=== PATIENT | female | born 1955 | race Caucasian/White ===

== ENCOUNTER 2021-04-02 07:30 | Day surgery (SDC) | payer MEDICARE, OTHER ==
[~2021-04-02 07:30] MED LIST: Lactated Ringers 1,000 ML IV PRN; Sodium Chloride 0.9% 10 ML Syringe FLUSH PRN
[2021-04-02] MEDS ORDERED: fentaNYL 100 MCG/2 ML SDV IV ONE (07:31)
[2021-04-02] MEDS ORDERED: Midazolam 1 MG/ML 2 ML SDV IV ONE (07:31)
[2021-04-02] MEDS ORDERED: Ondansetron 4 MG/2 ML SDV IVPUSH ONE (07:31)
[2021-04-02] MEDS ORDERED: acetaZOLAMIDE 500 MG Cap.ER PO ONE (09:30)
[2021-04-02 11:03] VITALS: BP 123/73; PULSE 66
--- NOTE | 2021-04-03 09:03 | OR ---
DATE OF OPERATION: 04/02/2021 SURGEON: Lina Hammond MD PREOPERATIVE DIAGNOSIS: Visually significant cataract, left eye. POSTOPERATIVE DIAGNOSIS: Visually significant cataract, left eye. PROCEDURES PERFORMED: Phacoemulsification with intraocular lens placement, left eye. ASSISTANTS: None. ANESTHESIA: Local with sedation. COMPLICATIONS: None. BLOOD LOSS: None. IMPLANTS: Preloaded MALGORZATA DCB00 20.5 diopter lens implanted. CDE: 4.33. DESCRIPTION OF PROCEDURE: After risks and benefits were reviewed with the patient, consent was obtained in the preoperative area, and the operative eye was marked with a surgical pen. In the preoperative area, a pledget was used to dilate the pupil consisting of a mixture of phenylephrine 10%, cyclopentolate 2%, moxifloxacin 0.5%, and bupivacaine 0.75%. The patient was taken to the operating room, where a time-out was performed, and the patient was placed under monitored anesthesia care. Topical tetracaine was used for anesthesia. The operative eye was prepped and draped for ophthalmic surgery, and the microscope was brought into position and focused. A paracentesis incision was made, followed by injection of preservative-free 1% lidocaine into the anterior chamber, followed by injection of Viscoat into the anterior chamber. A microkeratome blade was used to make a corneal limbal incision temporally. A cystotome was used to make the beginning of the capsulorrhexis, which was carried around 360 degrees in a curvilinear fashion using Utrata forceps. A Patrick cannula with BSS was used to hydrodissect and hydrodelineate the nucleus. The nucleus was removed in a divide and conquer manner using phacoemulsification. Irrigation and aspiration were used to remove the remaining cortical material. Provisc was used to inflate the capsular bag, and a pre-loaded MALGORZATA DCB00 20.5 diopter lens, serial number [id number] was injected into the capsular bag. A Sinskey hook was used to position and center the lens. Next, irrigation and aspiration was used to remove any remaining viscoelastic and cortical material from the anterior chamber. BSS on a cannula was used to inflate the anterior chamber and hydrate the wound. The wound was checked and found to be watertight. 1 mg of Moxifloxacin was injected into the anterior chamber. Drapes were removed and the eye was cleaned. A drop of brimonidine 0.2% and a drop of TobraDex was placed. The eye was shielded, and the patient was taken to the recovery room in stable condition. /[id number] STEFANI/AMAURY
== END 2021-04-02 10:30 | disposition home or self-care (01) ==
LOC: FB.SDS 07:30
PROVIDERS: ATTEND Ophthalmology
DX: H25.813 Combined forms of age-related cataract, bilateral (principal); H35.372 Puckering of macula, left eye; H02.881 Meibomian gland dysfunction right upper eyelid; H02.884 Meibomian gland dysfunction left upper eyelid; H31.2 Hereditary choroidal dystrophy; H52.13 Myopia, bilateral; I10 Essential (primary) hypertension; E66.9 Obesity, unspecified; K21.9 Gastro-esophageal reflux disease without esophagitis; E78.5 Hyperlipidemia, unspecified; Z79.899 Other long term (current) drug therapy; Z79.82 Long term (current) use of aspirin; Z88.1 Allergy status to other antibiotic agents; Z88.0 Allergy status to penicillin; Z91.013 Allergy to seafood; Z68.37 Body mass index [BMI] 37.0-37.9, adult; Z91.041 Radiographic dye allergy status
CPT/HCPCS: 00142-QZ; A9270-GY; J2250; J2405; J3010; J7120; V2632

== ENCOUNTER 2022-11-28 06:41 | Day surgery (SDC) | payer MEDICARE ==
[~2022-11-28 06:41] MED LIST changes: -Lactated Ringers 1,000 ML IV PRN; +Lactated Ringers 1,000 ML IV SCH; +ceFAZolin 2 GM Vial IVPUSH ONE; +ceFAZolin 2 GM in Sodium Chloride 0.9% 100 ML IV ONE
[2022-11-28] MEDS ORDERED: Scopolamine 1.5 MG Transdermal Patch TOP ONE (06:42)
[2022-11-28] MEDS ORDERED: Sugammadex Sodium 200 MG/2 ML VIAL IV ONE (06:42)
[2022-11-28] MEDS ORDERED: Propofol 200 MG/20 ML SDV IV ONE (06:42)
[2022-11-28] MEDS ORDERED: Lactated Ringers 1,000 ML IV ONE (06:42)
[2022-11-28] MEDS ORDERED: Ondansetron 4 MG/2 ML SDV IVPUSH ONE (06:42)
[2022-11-28] MEDS ORDERED: Glycopyrrolate 0.2 MG/ML 5 ML MDV IV ONE (06:42)
[2022-11-28] MEDS ORDERED: fentaNYL 100 MCG/2 ML SDV IV ONE (06:42)
[2022-11-28] MEDS ORDERED: Rocuronium 100 MG/10 ML MDV IV ONE (06:42)
[2022-11-28] MEDS ORDERED: Midazolam 1 MG/ML 2 ML SDV IV ONE (06:42)
[2022-11-28] MEDS ORDERED: Bupivacaine 0.5%/EPINEPHrine 1:200,000 10 ML SDV INJECT ONE ×2 (08:37)
[2022-11-28 10:03] VITALS: BP 120/69; PULSE 78
[2022-11-28] MEDS ORDERED: Acetaminophen/HYDROcodone 325-5 MG Tab PO ONE (10:38)
== END 2022-11-28 11:55 | disposition home or self-care (01) ==
LOC: FB.SDS 06:41
PROVIDERS: ATTEND Surgery
DX: K80.10 Calculus of gallbladder with chronic cholecystitis without obstruction (principal); K21.9 Gastro-esophageal reflux disease without esophagitis; F41.1 Generalized anxiety disorder; I10 Essential (primary) hypertension; E78.5 Hyperlipidemia, unspecified; E66.9 Obesity, unspecified; Z98.890 Other specified postprocedural states; Z79.899 Other long term (current) drug therapy; Z88.0 Allergy status to penicillin; Z88.2 Allergy status to sulfonamides; Z88.1 Allergy status to other antibiotic agents; Z79.82 Long term (current) use of aspirin
CPT/HCPCS: 00790-QZ; 82947; 88304; A9270-GY; J0690; J2250; J2405; J2704; J3010; J3490; J7120